=== PATIENT | male | born 1955 | race American Indian/Alaskan Native ===

== ENCOUNTER 2021-10-28 09:21 | Emergency (ER) | payer OTHER, MEDICARE ==
[2021-10-28 09:39] VITALS: BP 242/111
[2021-10-28 10:19] LABS: Bilirubin,Urine NEG (Negative); Blood,Urine NEG (Negative); Color,Urine Colorless (Yellow); Protein,Urine <15 mg/dL mg/dL (Negative); Urobilinogen,Urine < 2.0 mg/dL (<2.0); WBC,Urine < 1.0 /HPF (0.0-6.0)
--- NOTE | 2021-10-28 10:19 | Emergency Department Report ---
ED Male HPI - General Chief complaint: Urogenital-Male Stated complaint: CAN'T URINE Time Seen by Provider: 10/28/21 09:43 Source: patient Mode of arrival: Ambulatory Limitations: No Limitations - History of Present Illness Initial comments: 66 yo wf with pmh of BPH presents to ed for evaluation of urinary retention. He states that he has been unable to urinate for since yesterday and now has abdominal pain and pressure. He denies fever and n/v. MD Complaint: other (urinary retention ) -: Gradual, days(s) (1) Location: abdomen Severity: severe Severity scale (0 -10): 10 Quality: aching urinary retention. denies: discharge, swelling, mass, dysuria, fever, nausea/vomiting, incontinence - Related Data Previous Rx's Medication Instructions Recorded Last Taken Type Tamsulosin [Flomax] 0.4 mg PO DAILY #30 cap 10/28/21 Unknown Rx Allergies Allergy/AdvReac Type Severity Reaction Status Date / Time No Known Allergies Allergy Unverified 10/28/21 09:31 ED Review of Systems ROS: Stated complaint: CAN'T URINE Other details as noted in HPI Comment: All other systems reviewed and negative Constitutional: denies: chills, fever Respiratory: denies: shortness of breath Cardiovascular: denies: chest pain, palpitations, dyspnea on exertion Gastrointestinal: denies: abdominal pain, nausea, vomiting, diarrhea, hematemesis, melena, hematochezia Genitourinary: denies: urgency, dysuria, frequency, hematuria, discharge, testicular pain Musculoskeletal: denies: back pain Neurological: denies: headache, weakness ED Past Medical Hx - Medications Home Medications: Home Medications Medication Instructions Recorded Confirmed Last Taken Type Tamsulosin [Flomax] 0.4 mg PO DAILY #30 cap 10/28/21 Unknown Rx ED Physical Exam - General Limitations: No Limitations General appearance: alert, in no apparent distress - Head Head exam: Present: atraumatic, normocephalic - Eye Eye exam: Present: normal appearance. Absent: conjunctival injection - Neck Neck exam: Present: normal inspection. Absent: lymphadenopathy - Respiratory Respiratory exam: Present: normal lung sounds bilaterally, respiratory distress. Absent: wheezes, chest wall tenderness - Cardiovascular Cardiovascular Exam: Present: tachycardia, normal heart sounds - GI/Abdominal GI/Abdominal exam: Present: soft, distended, tenderness, normal bowel sounds - Extremities Exam Extremities exam: Present: normal inspection - Back Exam Back exam: Present: normal inspection. Absent: CVA tenderness (R), CVA tenderness (L) - Neurological Exam Neurological exam: Present: alert, oriented X3 - Psychiatric Psychiatric exam: Present: normal affect, normal mood - Skin Skin exam: Present: warm, dry, intact, normal color ED Course Vital Signs 10/28/21 09:38 Temperature 98.3 F Pulse Rate 115 H Respiratory 24 Rate Blood Pressure 242/111 [Right] O2 Sat by Pulse 96 Oximetry - Catheter Insertion (Urinary) Indications: to alleviate urinary retention Prophylactic Antibiotics Given: No Bladder Scan/US before Catherization: No Preparation: Providone-Iodine Type of Catheter Inserted: 2 way, Brower Catheter [place]i Size: 16 Catheter Balloon Size (mls): 10 Topical Anesthesia Used: No Results: successfully catherized-immediate flow Patient Tolerated Procedure: well Complications: none Additional Comments: 900 ml of clear yellow uop noted. ED Medical Decision Making - Medical Decision Making 66 yo wf with pmh of BPH presents to ed for evaluation of urinary retention. He states that he has been unable to urinate for since yesterday and now has abdominal pain and pressure. He denies fever and n/v. 16 [place] indwelling Brower cath placed per this provider, and patient noted to have out 900 mL of clear yellow urine. UA negative for urinary tract infection. Patient discharged home with refill of Flomax and given urologist to follow-up with. He was encouraged to keep Brower in until he can see urology in the next 2 to 3 days. He was advised to return to the emergency department for any concerning symptoms. He verbalized understanding of and agreement with plan of care. Critical care attestation.: If time is entered above; I have spent that time in minutes in the direct care of this critically ill patient, excluding procedure time. ED Disposition Clinical Impression: Urinary retention, Medication refill Disposition: 01 HOME / SELF CARE / HOMELESS Is pt being admited?: No Does the pt Need Aspirin: No Condition: Stable Instructions: Indwelling Urinary Catheter Insertion, Care After, Acute Urinary Retention, Male, [id number] Additional Instructions: Take medications as prescribed. Follow-up with urologist in the next week for further evaluation and management. Return to the emergency department as needed. Prescriptions: Tamsulosin [Flomax] 0.4 mg PO DAILY #30 cap Referrals: OWEN SIMON MD [Staff Physician] - 3-5 Days Forms: Work/School Release Form(ED) Time of Disposition: 10:53
== END 2021-10-28 12:08 | disposition home or self-care (01) ==
LOC: ED 09:21
DX: R33.9 Retention of urine, unspecified (principal); Z76.0 Encounter for issue of repeat prescription
CPT/HCPCS: 51702; 81001; 99283